=== PATIENT | male | born 1975 | race Caucasian/White ===

== ENCOUNTER 2021-11-03 18:21 | Observation (INO) | payer MEDICAID, SELFPAY ==
[2021-11-03 16:00] VITALS: BP 135/90; PULSE 67; RESP 13; TEMP 36.5; O2SAT 93
[2021-11-03 16:08] VITALS: BMI 40.6
--- NOTE | 2021-11-03 16:58 | NURSING ---
PT RECEIVED [facility] 1530 PRIOR TO TRANSPORT PER [facility]. PT UNABLE TO STAY AWAKE DURING ADMISSION. RATED PAIN 2/10.
[2021-11-03] MEDS: 0.9% Normal Saline 1,000 ML 100 ML IV (18:48)
[2021-11-03] MEDS: 0.9% Saline Lock 10 ML Syringe IV (18:49)
[2021-11-03] MEDS: Morphine 2 MG/ML Syringe IV ×3 (18:51→23:25)
[2021-11-03 20:02] VITALS: BP 121/77; PULSE 79; RESP 14; TEMP 36.5; O2SAT 96
[2021-11-03] MEDS: Ketorolac 15 MG/ML Vial IV (20:34)
[2021-11-04] VITALS (12 sets, daily range): BP systolic 127–155; BP diastolic 71–106; PULSE 71–102; RESP 14–18; TEMP 36.4–37.1; O2SAT 93–98; BMI 40.6
[2021-11-04] MEDS: Morphine 2 MG/ML Syringe IV ×3 (02:12→07:45)
[2021-11-04] MEDS: Ketorolac 15 MG/ML Vial IV (03:17)
[2021-11-04] MEDS: 0.9% Normal Saline 1,000 ML 100 ML IV (04:48)
--- NOTE | 2021-11-04 06:00 | EKG12_ITS ---
Test Reason : AM EKG Blood Pressure : / mmHG Vent. Rate : 076 BPM Atrial Rate : 076 BPM P-R Int : 178 ms QRS Dur : 110 ms QT Int : 408 ms P-R-T Axes : 062 -33 000 degrees QTc Int : 459 ms Normal sinus rhythm Left axis deviation Abnormal ECG No previous ECGs available Confirmed by MORGAN RUSHING, JUAN ([id number]), field map editor GERMANIA SHHA ([id number]) on 11/08/2021 11:14:41 AM Referred By: CHRISTIAN Confirmed By:JUAN MORA MD
[2021-11-04 06:42] LABS: Anion Gap 5 (5-15); BUN 16 mg/dL (7-18); BUN/Creat Ratio 11.3 RATIO (10-20); Chloride 111 mmol/L (98-107); Creatinine, Serum 1.41 mg/dL (0.70-1.30); EST Glomerular Filtration Rate 57 mL/min (>60); Est Glom Filt Rate - Afr Amer 69 mL/min (>60); Estimated Creatinine Clearance 62.66 ml/min; Glucose 151 mg/dL (74-106); Sodium Level 140 mmol/L (136-145); Thyroid Stim Hormone (TSH) 5.04 uIU/mL (0.358-3.74)
[2021-11-04 08:25] LABS: Hemoglobin A1c 8.8 % (3.8-5.6)
--- NOTE | 2021-11-04 10:00 | PCM.HP.STD ---
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, is a 46 M who presents to the hospital as a transfer from an outside emergency room with severe pain from an obstructing right kidney stone plan to take the surgery today to laser the stone and place a stent [facility] Medical History Diabetes Hypertension Hypothyroidism Kidney stones Home Medications allopurinol 300 mg tablet 300 mg PO QHS GOUT 11/03/21 [History Last Taken 11/02/21 22:00] glipizide 10 mg tablet 10 mg PO BID DM 11/03/21 [History Last Taken 11/03/21 10:00] levothyroxine 150 mcg tablet 150 mcg PO DAILY THYROID 11/03/21 [History Last Taken 11/03/21 06:00] losartan 50 mg tablet 50 mg PO QHS BP 11/03/21 [History Last Taken 11/03/21 10:00] metformin 1,000 mg tablet 1,000 mg PO BID DIABETIES 11/03/21 [History Last Taken 11/03/21 10:00] ciprofloxacin HCl 500 mg tablet (Cipro) 500 mg PO BID #14 tabs 11/04/21 [Rx Last Taken Unknown] hydrocodone-acetaminophen 5-325mg 5mg-325mg 1 tab PO Q6H PRN pain 7 days #14 tabs 11/04/21 [Rx Last Taken Unknown] Allergy/AdvReac Type Severity Reaction Status Date / Time No Known Allergies Allergy Verified 11/03/21 16:44 Family History Other Kidney stones Surgical History History of cholecystectomy Hx of tonsillectomy Social History Smoking Status: Never smoker ROS Constitutional Constitutional: Denies chills, fever(s) or malaise Eyes Eyes: Denies blurry vision or change in vision ENT HEENT: Reports none Cardiovascular Cardiovascular: Denies chest pain or palpitations Respiratory/Chest Respiratory/Chest: Denies cough or shortness of breath with exertion Gastrointestinal Gastrointestinal: Denies abdominal pain, constipation or diarrhea Musculoskeletal Musculoskeletal: Denies back pain, joint stiffness or joint swelling Integumentary Integumentary: Denies dry skin, jaundice, lesions or rash Neurologic Neurologic: Denies confusion, syncope or weakness Psychiatric Psychiatric: Reports none; Denies anxiety or depression Endocrine Endocrinology: Denies excessive sweating, fatigue or flushing Hematologic/Lymphatic Hematologic/Lymphatic: Denies anemia, easy bleeding or easy bruising Vital Signs Vital Signs Vital Signs: 11/03/21 16:00 11/03/21 20:02 11/03/21 20:13 Temperature 97.7 F L 97.7 F L Temperature Source Oral Temporal Pulse Rate 67 79 Respiratory Rate 13 14 Respiratory Effort Normal Respiratory Depth Normal Respiratory Pattern Normal Blood Pressure 135/90 H 121/77 H Blood Pressure Mean 105 91 Blood Pressure Source Monitor Monitor Blood Pressure Position Supine Semi-Fowlers Blood Pressure Location Left Arm Left Forearm Pulse Ox 93 96 Oxygen Delivery Method Room Air Room Air Room Air 11/04/21 02:00 11/04/21 07:38 11/04/21 07:47 Temperature 97.6 F L 98.0 F Temperature Source Temporal Oral Pulse Rate 77 81 Respiratory Rate 14 18 Respiratory Effort Normal Respiratory Depth Normal Respiratory Pattern Normal Blood Pressure 136/82 H 152/84 H Blood Pressure Mean 100 106 Blood Pressure Source Monitor Monitor Blood Pressure Position Semi-Fowlers Semi-Fowlers Blood Pressure Location Left Forearm Right Arm Pulse Ox 93 94 Oxygen Delivery Method Room Air Room Air Room Air 11/04/21 07:49 Temperature 98.0 F Temperature Source Oral Pulse Rate 71 Respiratory Rate 18 Respiratory Effort Respiratory Depth Respiratory Pattern Blood Pressure 152/84 H Blood Pressure Mean 106 Blood Pressure Source Monitor Blood Pressure Position Semi-Fowlers Blood Pressure Location Left Arm Pulse Ox 94 Oxygen Delivery Method Room Air Weight Weight: 121.336 kg Body Mass Index (BMI) 40.6 Physical Exam Const alert and oriented x3 General Appearance: cooperative HEENT normocephalic, head/scalp atraumatic, EAC's normal and TM's normal bilaterally Eyes PERRL and EOMs intact bilaterally Pupil: sluggish Neck no lymphadenopathy, supple and no JVD General: trachea midline Lymph Lymphatic: no lymphadenopathy noted, lymphedema and lymphadenopathy Resp normal respiratory effort, normal air movement and clear to auscultation bilaterally Cardio regular rate, regular rhythm and peripheral pulses 2+ throughout GI soft to palpation, non-tender and non-distended Extremity normal capillary refill and no clubbing, cyanosis or edema General Extremity: no tenderness to palpation of joints or extremities Skin no rashes or lesions noted General Skin Exam: turgor normal Lesions: no lesions Rashes: no rashes Neuro CN's II-XII intact bilaterally Speech: speech normal Motor Exam: strength 5/5 throughout; Negative for general weakness Psych thought process normal, cooperative and affect normal Appearance: appropriate Results Lab / Micro Data Result Diagrams: 11/04/21 05:25 Labs: Laboratory Results - last 24 hr 11/04/21 05:25: Sodium 140, Potassium 4.0, Chloride 111 H, Carbon Dioxide 24.0, Anion Gap 5, BUN 16, Creatinine 1.41 H, Estim Creat Clear Calc 62.66, Est GFR (MDRD) Af Amer 69, Est GFR (MDRD) Non-Af 57 L, BUN/Creatinine Ratio 11.3, Glucose 151 H, Calcium 8.0 L, TSH 5.04 H 11/04/21 05:25: Hemoglobin A1c 8.8 H Assessment & Plan Assessment/Plan (1) Kidney stones: PLAN: Plan for surgery with right ureteroscopy laser lithotripsy of stone and stent placement he understands if there is an infection that will only be able to place a stent
--- NOTE | 2021-11-04 10:02 | DCINST_ITS ---
Discharge Instructions Diet Discharge Diet: Light diet - advance as tolerated Activity Discharge Activity: Return to Normal Activity Follow Up Care Please Follow Up With: Cam Saucedo MD When: 2 weeks Test Results: Test results from this visit will be discussed in further detail at your follow- up appointment, if applicable. Discharge Plan Admission Admit Date/Time: 11/03/21 18:21 Primary Reason for Your Visit: kidney stone Attending Provider: Cam Saucedo Discharge Orders/Prescriptions Prescriptions: New ciprofloxacin HCl [Cipro] 500 mg tablet 500 mg PO BID Qty: 14 0RF hydrocodone-acetaminophen 5-325 mg tablet 1 tab PO Q6H PRN (Reason: pain) 7 Days Qty: 14 0RF Continued allopurinol 300 mg Tablet 300 mg PO QHS losartan 50 mg Tablet 50 mg PO QHS glipizide 10 mg Tablet 10 mg PO BID metformin 1,000 mg Tablet 1,000 mg PO BID levothyroxine 150 mcg Tablet 150 mcg PO DAILY Referrals / Follow Up: Cam Saucedo MD [STAFF PHYSICIAN] - Disposition Discharge Orders: Discharge Patient (Routine); Ordered 11/04/21 Ordered By: Dr. Cam Saucedo
--- NOTE | 2021-11-04 10:22 | PCM.OPRPT ---
Report of Operation Date of Procedure: 11/04/21 Pre-Operative Diagnosis: Obstructing large distal right ureteral calculi with hydronephrosis and infection Post-Operative Diagnosis: Same Surgery/Procedure Performed:: Cystoscopy right retrograde pyelogram and right stent placement Description of Surgical Findings:: Indication this is a 46-year-old male presented to the outside emergency room with severe colic on the right side uncontrollable pain they called [facility] they tried other hospitals were no but no beds were available so I accepted the patient as a transfer he was kept overnight with antibiotics and today were taken to surgery I suspect he may have an infection he has a severe pain in the right side has not been able to pass a stone alert running low-grade fevers.. And subjective chills. Patient was taken back to the operating room at a smooth induction of general anesthesia, the penis and testicles were prepped and draped in usual sterile fashion have very obese patient. Testicles with normal penis is normal circumcised. I then went into the urethra with a 21 Chinese rigid cystourethroscope the entire length the urethra was normal the sphincter was normal the prostate was normal inside the bladder no tumors or stones seen within the bladder I then cannulated the right ureteral orifice with a wire advanced a wire up into the kidney initially could not find the stone location but a Pollick catheter over the wire and a retrograde pyelogram working my way from the top down and eventually identified a stone in the distal ureter with high-grade obstruction was a retrograde pyelogram was done then significant amount of purulent urine came out from around the stone and discharging into the bladder and therefore this point I did not proceed with any other procedure since he had an infected stone I then put a wire past the stone and then over the wire placed a stent 6 Chinese by 26 cm stent patient's bladder was drained anesthetic reversed to be discharged home today with antibiotics to clear out the infection and then want to get him set up for surgery to go and laser the stone and remove the stent at a separate setting once his infection cleared. Surgeon: Cam Saucedo Type of Anesthesia: General Drains: stent
[2021-11-04 11:01] LABS: Bedside Glucose 208 mg/dL (74-106)
== END 2021-11-04 15:00 | disposition home or self-care (01) ==
PROVIDERS: Anesthesiology; Admitting Provider Urology; Visit Provider Urology
PROC: 0TJ98ZZ Inspection of Ureter, Via Natural or Artificial Opening Endoscopic (ICD-10-PCS; CPT 52352; principal; 2021-11-04 09:00)
DX: N13.6 Pyonephrosis (principal); E11.9 Type 2 diabetes mellitus without complications; I10 Essential (primary) hypertension; Z79.84 Long term (current) use of oral hypoglycemic drugs; E03.9 Hypothyroidism, unspecified; Z79.899 Other long term (current) drug therapy; Z79.890 Hormone replacement therapy
CPT/HCPCS: 52332; 00910; C1769; C2617; 36415; 76000; 80048; 82962; 83036; 84443; 93005; 96361; 96365; 96366; 96367; 99218; J7030; A4216; G0378; J2405